=== PATIENT | male | born 2005 | race Caucasian/White ===

== ENCOUNTER 2024-02-16 20:56 | Emergency (ER) | payer BC, SELFPAY ==
[2024-02-16 20:57] VITALS: BP 188/99; PULSE 90; RESP 18; TEMP 36.6; O2SAT 99
--- NOTE | 2024-02-16 21:07 | ED.DENTAL ---
HPI - Dental/Oral General Chief complaint: Extremity Problem,Nontraumatic Stated complaint: leg numb Time Seen by Provider: 02/16/24 21:07 History of Present Illness HPI Narrative: Pt presents with pain in upper right posterior molar for several days. Pt says the pain is intermittent. Pt denies fever or swelling. Pt has not seen a dentist in years. Pt also has intermittent numbness in left lower arm and left leg. Pt also has numbness in right leg but left is worse. this has been going on intermittently for some time. Pt denies pain or weakness or GROVE. Pt has no FH of CVA's or clotting abnormalities. Pt says the numbness comes and goes and he cannot think of anything that precipitates it. Review of Systems Review of Systems: All systems reviewed & are unremarkable except as noted in HPI and below Exam Const: General: healthy appearing and no acute distress Nutritional Appearance: well nourished Orientation/consciousness: patient oriented x3 Limitations: no limitations HENMT: Other: dentqal carries no obvious abscess or swelling Eyes: Conjunctivae: conjunctivae normal Pupils: Equal, round and reactive pupils present EOM: EOMs intact bilaterally Neck: Neck: normal visual inspection and no lymphadenopathy Resp: Effort & Inspection: normal respiratory effort Auscultation: clear to auscultation bilaterally Cardio: Rate: regular rate Rhythm: regular rhythm GI: GI Palp: Yes Soft to palpation and No Tenderness to palpation present (GI) Auscultation: normal bowel sounds Skin: General skin exam: normal color Wounds: no wounds Neuro: General: patient oriented x3, moves all extremities, no meningeal signs, no focal motor deficits and CN's II-XI intact bilaterally Cranial nerves: Yes Nystagmus not present Speech: normal speech Gait exam (Neuro): Normal gait present Extrem: General: normal to inspection and no clubbing, cyanosis or edema Psych: Mental Status: mental status grossly normal Affect: normal affect Attitude: cooperative Course Vital Signs Vital signs: Vital Signs Temperature 97.9 F 02/16/24 20:57 Pulse Rate 90 02/16/24 20:57 Respiratory Rate 18 02/16/24 20:57 Blood Pressure 188/99 H 02/16/24 20:57 Pulse Oximetry 99 02/16/24 20:57 Oxygen Delivery Room Air 02/16/24 20:57 Temperature 97.9 F 02/16/24 20:57 Pulse Rate 90 02/16/24 20:57 Respiratory Rate 18 02/16/24 20:57 Blood Pressure 188/99 H 02/16/24 20:57 Pulse Oximetry 99 02/16/24 20:57 Oxygen Delivery Room Air 02/16/24 20:57 MDM - Dental/Oral MDM Narrative Medical decision making narrative: pt has mild dental pain with possible early abscess pt has intermittent numbness to left arm and leg in different areas at different times. Doubt CVA given duration and risk factors. recommended follow up with PCP for this if it persists. Will give dose of pcn here and home on pcn and naprosyn Discharge Plan Discharge Clinical Impression: Dental caries, Paresthesia Patient Disposition: Home, Self-Care Condition: Stable Instructions: Antibiotic Form, Dental Abscess (ED), Paresthesia (ED) Prescriptions: New penicillin V potassium 500 mg tablet 500 mg PO QID Qty: 40 0RF naproxen [Naprosyn] 500 mg tablet 500 mg PO BID Qty: 20 0RF Follow-up/Referrals: UNKNOWN,DOCTOR [Primary Care Provider] -
[2024-02-16] MEDS: NAPROXEN 250 MG TABLET 500 MG PO (21:42)
[2024-02-16] MEDS: Please add drug allergy info to patient profile. 1 EACH XX (21:43)
[2024-02-16 21:56] VITALS: BP 165/92; PULSE 74; RESP 18; O2SAT 99
== END 2024-02-16 21:56 | disposition home or self-care (01) ==
PROVIDERS: Emergency Provider Emergency Medicine
DX: K02.9 Dental caries, unspecified (principal); R20.2 Paresthesia of skin
CPT/HCPCS: 99283; A9270